=== PATIENT | male | born 1955 | race Caucasian/White ===

== ENCOUNTER 2018-11-12 17:57 | Observation (INO) | payer BC, OTHER ==
[~2018-11-12] VITALS: Ht 193 cm; Wt 106.3 kg
[~2018-11-12 17:57] MED LIST: CITALOPRAM HBR20 MG PO; FISH OIL PO; GLUCOSAMIN-CHO1 EACH PO; IMITREX100 MG PO; LOPRESSOR25 MG PO; MULTAQ400 MG PO; MULTIPLE VITAM1 EAC1 PO; PRADAXA150 MG PO
[2018-11-12] MEDS ORDERED: ASPIRIN 81 MG CHEW TAB PO ONE ×2 (18:30→21:45)
[2018-11-12 18:41] LABS: BASOPHILS # (AUTO) 0.1 (0.0-0.1); BASOPHILS % 0.7 % (0.0-1.0); EOSINOPHILS # (AUTO) 0.1 (0.0-0.4); EOSINOPHILS % 0.9 % (0.0-6.0); HEMATOCRIT 37.4 % (38.2-49.6); HEMOGLOBIN 13.4 g/dL (14.0-18.0); LYMPHOCYTES % 34.2 % (18.0-39.1); MEAN CORPUSCULAR HEMOGLOBIN 33.8 pg (28-32); MEAN CORPUSCULAR HGB CONC 35.8 g/dL (31-35); MEAN CORPUSCULAR VOLUME 94.2 fL (81-99); MONOCYTES # (AUTO) 1.4 (0.2-0.8); MONOCYTES % 12.2 % (4.4-11.3); NEUTROPHILS % 50.8 % (38.7-80.0); PLATELET COUNT 230 x10e3/uL (140-360); RED BLOOD COUNT 3.97 x10e6/uL (4.3-5.7); RED CELL DISTRIBUTION WIDTH 13.6 % (11.7-14.4)
[2018-11-12 18:45] LABS: INR 0.9
[2018-11-12 18:46] LABS: PARTIAL THROMBOPLASTIN TIME 25.3 seconds (23.8-35.5)
--- NOTE | 2018-11-12 18:50 | Diagnostic Imaging Report ---
EXAM: XR CHEST 1 VIEW DATE: 11/12/2018 6:30 PM INDICATION: Pain COMPARISON: None FINDINGS: Lines and Tubes: Left chest wall pacemaker. Heart and Mediastinum: No acute cardiomediastinal findings. Lungs and Pleura: No significant pleural effusion, pneumothorax, or focal consolidation. Bones and Soft Tissues: No acute findings. IMPRESSION: 1. No acute cardiopulmonary findings. Signed by: Dr. Juan Wray MD on 11/12/2018 6:46 PM
[2018-11-12 18:53] LABS: ALBUMIN 3.9 g/dL (3.5-5.0); ALBUMIN/GLOBULIN RATIO 1.7 (0.8-2.0); ANION GAP 17.2 mmol/L (8-16); CALCIUM 9.2 mg/dL (8.4-10.2); CREATININE, SERUM 1.66 mg/dL (0.72-1.25); POTASSIUM 3.2 mmol/L (3.5-5.1)
[2018-11-12 18:59] LABS: CREATINE KINASE MB 1.7 ng/mL (0-5.0)
--- NOTE | 2018-11-12 19:15 | NUR ---
REPORT AND PATIENT CARE ENDORSED TO SABA
[2018-11-12 19:40] LABS: CLARITY,URINE CLEAR (CLEAR); COLOR,URINE YELLOW (YELLOW); LEUKOCYTE ESTERASE ,URINE NEGATIVE (NEGATIVE); NITRITE,URINE NEGATIVE (NEGATIVE); PROTEIN,URINE DIPSTICK NEGATIVE (NEGATIVE)
[2018-11-12 19:41] LABS: BILIRUBIN,URINE NEGATIVE (NEGATIVE); KETONES,URINE 1+ (NEGATIVE); URINE UROBILINOGEN 0.2 mg/dL (0.2 - 1)
[2018-11-12 19:50] LABS: BACTERIA,URINE MANY /HPF; EPITHELIAL CELLS,URINE FEW /LPF; WBC,URINE (MAN) 0-5 /HPF (0-5)
[2018-11-12] MEDS ORDERED: AMLODIPINE BESYL5 MG PO (20:22)
[2018-11-12] MEDS ORDERED: CRESTOR10 MG PO (20:22)
[2018-11-12] MEDS ORDERED: SODIUM CHLORIDE 0.9% 1000ML 1,000 ML IV STA (21:31)
[2018-11-12] MEDS ORDERED: SODIUM CHLORIDE FLUSH 10 ML SYR INJ PRN (21:45)
[2018-11-12] MEDS ORDERED: NITROGLYCERIN 0.4 MG SUBL SL PRN (21:45)
[2018-11-12 23:30] VITALS: BP 114/67
--- NOTE | 2018-11-12 23:30 | NUR ---
patient is a new admit that arrived via wheelchair. patient is awake and talking. patient has been helped into the bed. bed is in lowest position and call light is within reach. will continue to monitor patient.
[2018-11-13] VITALS (8 sets, daily range): BP systolic 110–134; BP diastolic 55–72
[2018-11-13] MEDS ORDERED: METOPROLOL TART50 MG PO (00:42)
[2018-11-13] MEDS ORDERED: CITALOPRAM HBR20 MG PO (00:42)
[2018-11-13] MEDS ORDERED: MITIGARE PO (00:42)
--- NOTE | 2018-11-13 07:03 | NUR ---
report given to day nurse. patient is resting comfortably in bed. bed is in lowest position and call loja is within reach.
[2018-11-13] MEDS: ASPIRIN 81 MG ENTERIC COATED PO SCH (09:38)
[2018-11-13 10:44] LABS: CREATINE KINASE MB 0.8 ng/mL (0-5.0)
[2018-11-13] MEDS ORDERED: MORPHINE SULFATE 2 MG/ML SYR 1ML IV PRN (13:00)
[2018-11-13] MEDS ORDERED: HYDROCODONE/APAP 5MG-325MG TAB PO PRN (13:00)
--- NOTE | 2018-11-13 13:00 | NUR ---
call Dr. Wong's line to reach MD concerning potassium level of 3.2, was told by Junito Gutiérrez NP that the MD is rounding and will be able to take care of the potassium level at that time.
[2018-11-13] MEDS: HYDROCODONE/APAP 5MG-325MG TAB PO PRN (13:10)
[2018-11-13] MEDS: MORPHINE SULFATE INJ 4 MG/ML INJ 1ML IV PRN ×2 (15:30→20:28)
[2018-11-13] MEDS ORDERED: SODIUM CHLORIDE 0.9% 1000ML 1,000 ML IV SCH (17:00)
[2018-11-13] MEDS ORDERED: MITIGARE 0.6 MG PO SCH ×2 (17:00)
[2018-11-13] MEDS: METOPROLOL TARTRATE 50 MG TAB PO SCH (17:00)
[2018-11-13] MEDS ORDERED: POTASSIUM CHLORIDE 20 MEQ TAB CR PO SCH ×2 (17:00→17:30)
[2018-11-13] MEDS: FAMOTIDINE 20 MG TAB PO SCH (17:40)
[2018-11-13] MEDS: DABIGATRAN ETEXILATE 150 MG CAP PO SCH (17:40)
[2018-11-13] MEDS: DRONEDARONE 400 MG TAB PO SCH (17:40)
--- NOTE | 2018-11-13 19:05 | NUR ---
rounded with evening or night nurse supervisor nurse, patient aware of change. Patient in no distress, call loja within reach and bed in lowest position.
[2018-11-13] MEDS ORDERED: ACETAMINOPHEN 325 MG TAB PO PRN (20:15)
[2018-11-13] MEDS ORDERED: CITALOPRAM HYDROBROMIDE 20 MG TAB PO SCH (21:00)
[2018-11-13] MEDS ORDERED: SIMVASTATIN 20 MG TAB PO SCH (21:00)
--- NOTE | 2018-11-13 21:10 | History and Physical ---
PRIMARY CARE PROVIDER: Dr. Craig Taylor, not on staff here. CHIEF COMPLAINT: Chest discomfort. HISTORY OF PRESENT ILLNESS: Mr. Brown is a 63-year-old gentleman with a history of chronic AFib, previous atrial ablation, pacemaker, and hypertension, who presents with chest discomfort and palpitations. He says that he has had kind of a vague heaviness in his chest and fatigue for about the past 2 weeks, and he checked his pulse yesterday and noticed that he was having frequent pauses and was concerned and came to the ER. His EKG was found to have numerous PVCs, trigeminy at times, and was admitted to rule out acute coronary syndrome. REVIEW OF SYSTEMS: He denies fever, chills, or weight loss. He denies sinus congestion or sore throat. He has chest discomfort and palpitations as noted and he denies diaphoresis. He denies shortness of breath, wheezing, or cough. He denies abdominal pain, nausea, vomiting, or melena. He denies dysuria or flank pain. He denies rash or pruritus. He denies joint pain or swelling. He denies headache, vertigo, or loss of consciousness. He denies depression, agitation, homicidal or suicidal ideation. PAST MEDICAL HISTORY: Significant for hypertension, gout, chronic AFib, and arthritis. He also has a history of atrial ablation, pacemaker placement. He has had back surgery twice and he has had meniscal repair on both knees. CURRENT MEDICATIONS: Include Celexa 20 mg at bedtime, metoprolol 50 mg twice daily, Multaq 400 mg twice daily, Pradaxa 150 mg twice daily, amlodipine 5 mg daily, Crestor 10 mg daily, Uloric 60 mg daily, Plaquenil 200 mg daily, and Mitigare or colchicine 0.6 mg twice daily which gives the patient diarrhea. ALLERGIES: HE HAS NO KNOWN DRUG ALLERGIES. FAMILY HISTORY: Significant for hypertension. SOCIAL HISTORY: The patient is , here with his . He quit smoking 8 years ago. He drinks daily beer or two. He does not use illegal drugs, and he is generally independently functioning. PHYSICAL EXAMINATION: PSYCHIATRIC: He is alert and oriented x3 with normal mood and affect. CONSTITUTIONAL: He has a normal body habitus, is in no acute distress. VITAL SIGNS: As follows: Blood pressure 134/72, pulse 90 and irregular at times, respiratory rate 16, O2 sat 96% on room air, temperature 98.2. HEENT: His head is atraumatic. His eyes are anicteric with clear conjunctivae. Ears and nares are without erythema or discharge. Oropharynx is clear. NECK: Supple with no mass or thyromegaly. LYMPHATIC SYSTEM: He has no palpable cervical, axillary, or inguinal adenopathy. CARDIOVASCULAR SYSTEM: His heart has a regular rate and rhythm with occasional pauses. There is some occasional irregularity. There is no murmur. There is no carotid bruit. There is no peripheral edema. Palpable dorsal pedal pulses. RESPIRATORY: Lungs are clear to auscultation and percussion with normal respiratory effort. GASTROINTESTINAL: His abdomen is soft without organomegaly, masses, or tenderness with normal bowel sounds present. CUTANEOUS: His skin is warm and dry to touch with no rash or skin breakdown. MUSCULOSKELETAL: His joints are in normal alignment without erythema or swelling. He has no calf tenderness. NEUROLOGIC: Nonfocal with intact cranial nerves and no motor or sensory deficits. DIAGNOSTIC STUDIES: Chest x-ray shows no acute disease. His EKG shows frequent PVCs, trigeminy at times, but otherwise normal. His UA shows many bacteria. His flu screen is negative. BNP is 67.1. Troponin 0.006, 0.004, and 0.001. Hemoglobin A1c 5.5. His chemistry shows a potassium of 3.2. The rest of his electrolytes are normal. CO2 23. Creatinine 1.66, BUN 26 for a GFR of 42. Calcium 9.2. His transaminases, alk phos, and bilirubin are normal. His CBC shows a white count of 11.7 with a normal differential, hemoglobin 13.4, hematocrit 37.4, and platelet count 230,000. IMPRESSIONS AND PLAN: 1. Chest pain, rule out acute coronary syndrome. The patient's cardiac enzymes are negative x3. Will consult cardiology for stress test. 2. Palpitations. Frequent premature ventricular contractions on the monitor. Patient has a pacemaker. Will consult cardiology for further evaluation. 3. Hypokalemia which might be causing the premature ventricular contractions. Will replete with 40 mEq of potassium p.o., check a magnesium level in the morning. 4. Gout. Will check his uric acid level. Uloric formulary here and he had a rash with allopurinol, so will hold his gout medicine for now. 5. Hypertension. Will continue metoprolol and Norvasc. 6. Chronic atrial fibrillation and sick sinus syndrome with pacemaker placement. Will continue Pradaxa and Multaq as well as metoprolol. 7. Acute kidney injury versus chronic kidney disease 3. In our system, his last renal function was in 2012, which was normal. He has a glomerular filtration rate of 42, and the patient has been hydrated. Will recheck in the morning. 8. For prophylaxis, the patient will be on Pepcid for gastrointestinal prophylaxis, and is already on Pradaxa for deep venous thrombosis and stroke prophylaxis. Job#: [id number]
[2018-11-14] VITALS: BP 120/63
[2018-11-14 04:00] VITALS: BP 122/71
[2018-11-14 04:09] LABS: ANION GAP 10.4 mmol/L (8-16); BLOOD UREA NITROGEN 14 mg/dL (7-26); BUN/CREATININE RATIO 16 (6-25); CARBON DIOXIDE 24 mmol/L (22-29); CHLORIDE 109 mmol/L (98-107); CHOLESTEROL 130 MD/DL (0-199); CREATININE, SERUM 0.89 mg/dL (0.72-1.25); EST GLOMERULAR FILTRATION RATE > 60 ML/MIN (60-); GLUCOSE 95 mg/dL (74-118); HDL CHOLESTEROL 43 MG/DL (40-60); LDL CHOLESTEROL 53 MG/DL (60-130); POTASSIUM 3.4 mmol/L (3.5-5.1); SODIUM 140 mmol/L (136-145); TRIGLYCERIDES 172 MG/DL (0-149)
[2018-11-14 04:10] LABS: CALCIUM 7.8 mg/dL (8.4-10.2)
[2018-11-14 04:20] LABS: HEMATOCRIT 32.7 % (38.2-49.6); MEAN CORPUSCULAR HEMOGLOBIN 32.9 pg (28-32); MEAN CORPUSCULAR HGB CONC 33.6 g/dL (31-35); MEAN CORPUSCULAR VOLUME 97.9 fL (81-99); RED BLOOD COUNT 3.34 x10e6/uL (4.3-5.7)
[2018-11-14 04:21] LABS: BASOPHILS % 0.7 % (0.0-1.0); EOSINOPHILS # (AUTO) 0.1 (0.0-0.4); EOSINOPHILS % 1.6 % (0.0-6.0); LYMPHOCYTES # (AUTO) 2.3 (1.0-3.2); LYMPHOCYTES % 39.8 % (18.0-39.1); MONOCYTES # (AUTO) 0.7 (0.2-0.8); MONOCYTES % 11.4 % (4.4-11.3); NEUTROPHILS # (AUTO) 2.6 (2.1-6.9); NEUTROPHILS % 45.6 % (38.7-80.0); PLATELET COUNT 161 x10e3/uL (140-360); RED CELL DISTRIBUTION WIDTH 13.4 % (11.7-14.4)
--- NOTE | 2018-11-14 06:40 | NUR ---
rounded with car shifter nurse, patient aware of change. Patient in no distress and call loja within reach
[2018-11-14 07:10] VITALS: BP 147/81
[2018-11-14 08:30] VITALS: BP 147/81
[2018-11-14] MEDS ORDERED: REGADENOSON 0.4 MG/5 ML SYR IV ONE (08:36)
[2018-11-14] MEDS: DRONEDARONE 400 MG TAB PO SCH ×2 (08:45→17:25)
[2018-11-14] MEDS: DABIGATRAN ETEXILATE 150 MG CAP PO SCH ×2 (08:45→17:25)
[2018-11-14] MEDS: METOPROLOL TARTRATE 50 MG TAB PO SCH ×2 (08:45→16:02)
[2018-11-14] MEDS: HYDROCODONE/APAP 5MG-325MG TAB PO PRN ×2 (08:45→14:47)
[2018-11-14] MEDS: FAMOTIDINE 20 MG TAB PO SCH ×2 (08:45→17:25)
[2018-11-14] MEDS: ASPIRIN 81 MG ENTERIC COATED PO SCH (08:45)
--- NOTE | 2018-11-14 08:55 | NUR ---
Patient in stable condition, alert and oriented. Patient wheeled from floor in wheelchair to stress test at this time
[2018-11-14] MEDS ORDERED: SIMVASTATIN 40 MG TAB PO SCH (09:00)
[2018-11-14] MEDS ORDERED: AMLODIPINE BESYLATE 5 MG TAB PO SCH (09:00)
--- NOTE | 2018-11-14 09:22 | Consultation ---
DATE OF CONSULTATION: November 13, 2018 CARDIOLOGY CONSULTATION REASON FOR CONSULTATION: Chest pain and stress test. HPI: This is a pleasant 63-year-old male that presented with chest pain. According to him, he started having chest pain at the center of the chest that felt like pressure that was going on for 2 weeks accompanied with palpitations. He has a history of CAD, permanent pacemaker and has not followed up with a brim flexer recently. He only sees the EP to interrogate his pacemaker, which was done May last year. He stated that the chest pain felt like heavy pressure. He checked his pulse and felt like he was skipping some beats that he decided to come into the emergency room for evaluation. He also has a history of chronic AFib, ablation times 2 and he was anticoagulated with Pradaxa. He also stated he drinks 4 cans of beer daily, which is 28 cans of beer weekly. He denied any headache, any nausea or vomiting, any dizziness, or diaphoresis. Troponin times 3 was negative. EKG showed normal sinus rhythm with frequent PVCs. PAST MEDICAL HISTORY: AFib, A-flutter, gout, hypertension, depression, sick sinus syndrome, alcohol abuse, and anemia. PAST SURGICAL HISTORY: Hernia repair, back surgery times 2, cataract surgery on both eyes, bilateral knee surgery, cardiac ablation times 2 for AFib and pacemaker placement in 2012. FAMILY HISTORY: Positive for hypertension. SOCIAL HISTORY: He lives at home with the . He drinks 4 cans of beer daily. MEDICATIONS: He is on Pradaxa, metoprolol, Multaq, Crestor, and Norvasc. ALLERGIES: HE IS NOT ALLERGIC TO ANY MEDICATION. REVIEW OF SYSTEMS: Negative except those mentioned above. Positive for chest pain and palpitations. PHYSICAL EXAMINATION VITAL SIGNS: Temperature 98.5, heart rate 73, blood pressure 122/71, respirations 16, oxygen saturation 98% on 2 L nasal cannula. GENERAL: He is awake, alert and oriented times 3. HEENT: Mucous membrane moist. NECK: Supple. LUNGS: Bilateral clear to auscultation. CARDIOVASCULAR: S1 and S2 present. No murmur. ABDOMEN: Soft. NEUROLOGICAL: Intact. EXTREMITIES: With no edema. LABS: Sodium 140, potassium 3.4, chloride 109, CO2 24, BUN 14, creatinine 0.89, glucose 95. BNP 67.1. White blood cells 5.78, hemoglobin 11, hematocrit 32.7, and platelets 161,000. IMPRESSION 1. Chest pain. 2. Palpitations. 3. Hypokalemia. 4. Coronary artery disease with permanent pacemaker. 5. History of chronic atrial fibrillation. 6. Hypertension. 7. Alcohol abuse. 8. History of gout. 9. Chronic pain. 10. Depression. ASSESSMENT AND PLAN 1. Will go ahead and get an echocardiogram to assess the LV and the valve function. 2. Troponin times 3 was negative. 3. His heart rate is controlled and he is anticoagulated with Pradaxa. 4. Due to the symptoms of the chest pain and history of CAD, will go ahead and set him for Lexiscan Myoview to rule out any occlusion. 5. Permanent pacemaker was recently interrogated with good function. 6. Continue his home medications. 7. He has been counseled on alcohol cessation. 8. Will keep him n.p.o. and get consent for stress test. Risks and benefits explained to him and he agreed. Further cardiac workup pending clinical course. Thank you for this consultation. DICTATED BY YAZAN PAULINO NP Job#: [id number]
--- NOTE | 2018-11-14 10:25 | NUR ---
patient arrived back on floor via wheelchair, alert and oriented and in stable condition.
[2018-11-14] MEDS: MORPHINE SULFATE INJ 4 MG/ML INJ 1ML IV PRN ×2 (10:40→17:35)
[2018-11-14 12:00] VITALS: BP 122/78
--- NOTE | 2018-11-14 12:36 | NUR ---
patient leaving floor via wheelchair for second half of stress test. Patient alert and oriented and in stable condition
--- NOTE | 2018-11-14 12:37 | NUR ---
STILE RIPSAW OPERATOR INITIAL ASSESSMENT Paramedic Rn to bedside to discuss plan of care with patient/family. CM/SW role and care transitions discussed. Anticipated discharge plan discussed along with duration of care. CM/SW discussed patients right to make decisions in care. CM/SW work hours given. Patient lives: in house in [place] with his Admit/Transfer: came from ED POA/Emergency contact: : Niyah Brown [phone] Current/Previous Home Health: none PCP/Follow-up Care: Dr. Craig Taylor Current/Previous DME: RW, Cane, Wheelchair Other Services: none Employment Status: works at [employer] in [place] Areas of Concerns: none Referral Needs: none Education Needs: none IMM/MATHUR given and signed (if applicable): n/a Goal for discharge: to return home to , and return to work CM/SW left business card at the bedside with contact information. Name and number was also written on the patients whiteboard. Patient verbalized understanding of discussion. CM will follow-up with ongoing discharge and transition of care needs.
--- NOTE | 2018-11-14 13:05 | NUR ---
patient returned to floor via wheelchair, alert and oriented and in stable condition
[2018-11-14 16:07] VITALS: BP 102/58
--- NOTE | 2018-11-14 19:11 | NUR ---
discharge instructions given to patient and at this time, both verbalized understanding. IV discontinued at this time, catheter in tact and small dressing applied. Patient in stable condition and is escorted from the floor at this time via wheelchair to patient's auto for to drive home.
--- NOTE | 2018-11-15 00:14 | Discharge Summary ---
ADMITTING DIAGNOSES 1. Chest pain rule out acute coronary syndrome. 2. Palpitations and frequent premature ventricular contractions. 3. Hypokalemia. 4. Gout. 5. Hypertension. 6. Chronic atrial fibrillation and sick sinus syndrome, status post pacemaker placement. 7. Acute kidney injury. DISCHARGE DIAGNOSES 1. Chest pain rule out acute coronary syndrome. 2. Palpitations and frequent premature ventricular contractions. 3. Hypokalemia. 4. Gout. 5. Hypertension. 6. Chronic atrial fibrillation and sick sinus syndrome, status post pacemaker placement. 7. Acute kidney injury. BRIEF HISTORY: Mr. Brown is a 63-year-old gentleman presenting with chest discomfort and palpitations that had been going on for at least a week. He felt his pulse and had occasional pauses, was found to be in trigeminy at times with frequent PVCs with compensatory pauses. The patient was admitted to rule out acute coronary syndrome. HOSPITAL COURSE: The patient was admitted to floor overnight. Serial cardiac enzymes were negative for myocardial injury. His palpitations improved with repletion of his hypokalemia. He was seen by cardiology. Echocardiogram was ordered which showed ejection fraction 50% to 55% without any wall motion abnormalities, calcified mitral valve. The tower truck driver then performed a stress test that was negative for reversible myocardial ischemia. The patient was then discharged home to resume all his home meds, a cardiac diet, activity as tolerated. He was instructed to follow up with his PCP within 2 weeks and to follow up with the tower truck driver in 2 weeks as well. GORDON WERNER MD Job#: [id number] CF
== END 2018-11-14 19:11 | disposition home or self-care (01) ==
LOC: ER 17:57 → ERHOLD 21:44 → IMCU 23:44
PROVIDERS: ADMIT Internal Medicine; ATTEND Internal Medicine
DX: R07.9 Chest pain, unspecified (principal); I49.3 Ventricular premature depolarization; E87.6 Hypokalemia; M10.9 Gout, unspecified; I48.2 Chronic atrial fibrillation; Z79.01 Long term (current) use of anticoagulants; N17.9 Acute kidney failure, unspecified; Z95.0 Presence of cardiac pacemaker; F10.10 Alcohol abuse, uncomplicated; G89.29 Other chronic pain; F32.9 Major depressive disorder, single episode, unspecified
CPT/HCPCS: 36415 ×2; 71045; 78452; 80048; 80053; 80061; 81001; 82550 ×2; 82553 ×2; 83036; 83735; 83880; 84484 ×2; 84550; 85025 ×2; 85610; 85730; 87400; 93005; 93017; 93306; 99284; A9502; G0378 ×3; J2270 ×2; J2785; J7030 ×2

== ENCOUNTER → 2020-01-24 | Day surgery (SDC) | payer OTHER ==
[2020-01-21 10:46] LABS: BASOPHILS # (AUTO) 0.1 (0.0-0.1); BASOPHILS % 0.8 % (0.0-1.0); EOSINOPHILS # (AUTO) 0.3 (0.0-0.4); EOSINOPHILS % 3.1 % (0.0-6.0); HEMATOCRIT 46.4 % (38.2-49.6); HEMOGLOBIN 15.5 g/dL (14.0-18.0); LYMPHOCYTES # (AUTO) 2.2 (1.0-3.2); LYMPHOCYTES % 21.7 % (18.0-39.1); MEAN CORPUSCULAR HEMOGLOBIN 32.4 pg (28-32); MEAN CORPUSCULAR HGB CONC 33.4 g/dL (31-35); MEAN CORPUSCULAR VOLUME 97.1 fL (81-99); MONOCYTES # (AUTO) 1.1 (0.2-0.8); MONOCYTES % 10.9 % (4.4-11.3); NEUTROPHILS # (AUTO) 6.5 (2.1-6.9); PLATELET COUNT 214 x10e3/uL (140-360); RED BLOOD COUNT 4.78 x10e6/uL (4.3-5.7)
--- NOTE | 2020-01-21 10:48 | Diagnostic Imaging Report ---
EXAMINATION: CHEST 2 VIEWS INDICATION: Pre-operative COMPARISON: Chest radiograph 11/12/2018 FINDINGS: LINES/TUBES:Left chest pacer LUNGS:The lungs are mildly hyperinflated. Mild right apical pleural parenchymal thickening/scarring. No focal consolidation or pulmonary edema. PLEURA:No pleural effusion or pneumothorax. MEDIASTINUM:The cardiomediastinal silhouette appears normal in size and shape. BONES/SOFT TISSUES:No acute osseous injury. ABDOMEN:No free air under the diaphragm. IMPRESSION: Mildly hyperinflated lungs. No focal pneumonia or pulmonary edema. Signed by: Jian Muñiz MD on 01/21/2020 10:44 AM
[2020-01-21 11:06] LABS: ALBUMIN 4.2 g/dL (3.5-5.0); ALBUMIN/GLOBULIN RATIO 1.7 (0.8-2.0); ANION GAP 13.6 mmol/L (8-16); CREATININE, SERUM 1.37 mg/dL (0.72-1.25); POTASSIUM 3.6 mmol/L (3.5-5.1)
[~2020-01-24] MED LIST changes: +AMLODIPINE BESYL5 MG PO; +APPLE CIDER VI1 EAC1 PO; +ARIMIDEX1 MG PO; +B&O 60MG R/S 60 MG SUPP PR ONE; +CEFAZOLIN SOD 1 GM/NS 50ML 100 ML IV ONE; +CENTRUM PO; +CRESTOR10 MG PO; +EPHEDRINE SULFATE INJ 50 MG/ML VIAL ONE; +FENTANYL CITRATE/PF 100MCG/2 ML INJ ONE; +FLAXSEED OIL1000 MG PO; +FOSAMAX70 MG PO; +IOPAMIDOL 300MG/ML 50ML INFUS..BTL IV ONE; +LIDOCAINE HCL 2% LOCAL INJ 5 ML SDV VIAL INJ ONE; +MELATONIN3 MG PO; +METOPROLOL TART50 MG PO; +MIDAZOLAM HCL 2 MG/2 ML VIAL ONE; +MITIGARE PO; +OLMESARTAN-HCT1 EAC1 PO; +ONDANSETRON HCL INJ 2MG/ML 2ML 2 MG/ML VIAL ONE; +PLAQUENIL200 MG PO; +PREDNISONE5 MG PO; +PROPOFOL IV EMULSION 10 MG/ML 20 ML VIAL ONE; +SEVOFLURANE INHAL SOLN 250 ML PEN BTL ONE; +TESTOSTERO100 MG/1 M INJ; +ULORIC80 MG PO
--- OUTSIDE RECORDS SUMMARY | 2020-01-24 05:40 | XMS REPORT ---
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 Medications Ordered Medication Name Filled Medication Name Start Date Stop Date Current Medication? Ordering Clinician Indication Dosage Frequency Signature (SIG) Comments Components Amlodipine Besylate 5 Mg Tablet Amlodipine Besylate 5 Mg Tablet Yes 5 Daily Citalopram Hydrobromide (Citalopram Hbr) 20 Mg Tablet Citalopram Hydrobromide (Citalopram Hbr) 20 Mg Tablet Yes 20 Bedtime Citalopram Hydrobromide (Citalopram Hbr) 20 Mg Tablet Citalopram Hydrobromide (Citalopram Hbr) 20 Mg Tablet Yes 20 Daily Dabigatran Etexilate Mesylate (Pradaxa) 150 Mg Capsule Dabigatran Etexilate Mesylate (Pradaxa) 150 Mg Capsule Yes 150 Twice A Day Dronedarone Hydrochloride (Multaq) 400 Mg Tablet Dronedarone Hydrochloride (Multaq) 400 Mg Tablet Yes 400 Twice A Day Metoprolol Tartrate 50 Mg Tablet Metoprolol Tartrate 50 Mg Tablet Yes 50 Twice A Day Rosuvastatin Calcium (Crestor) 10 Mg Tab Rosuvastatin Calcium (Crestor) 10 Mg Tab Yes 10 Daily Metoprolol Tartrate (Lopressor) 25 Mg Tab, 25 Mg Oral Metoprolol Tartrate (Lopressor) 25 Mg Tab, 25 Mg Oral 2018-11-14 00:00:00 No 25 Twice A Day Mitigare , 0.6 Mg Oral Mitigare , 0.6 Mg Oral 2018-11-14 00:00:00 No .6 Twice A Day Fish Oil , 1 Tab Oral Fish Oil , 1 Tab Oral 2013-07-14 00:00:00 No 1 Twice A Day Gluc/Sergey-Msm#2/C/D3/Mohit/Born (Xvstdltapd-Mrpagepphnh-Xvc Tab) 1 Each Tablet, Oral Gluc/Sergey-Msm#2/C/D3/Mohit/Born (Czvaooslcj-Ndqlugrmgcl-Mwj Tab) 1 Each Tablet, Oral 2013-07-14 00:00:00 No Twice A Day Multivitamin With Minerals (Multiple Vitamin) 1 Each Tablet, 1 Tab Oral Multivitamin With Minerals (Multiple Vitamin) 1 Each Tablet, 1 Tab Oral 2013-07-14 00:00:00 No 1 Bedtime Sumatriptan Succinate (Imitrex) 100 Mg Tablet, 100 Mg Oral Sumatriptan Succinate (Imitrex) 100 Mg Tablet, 100 Mg Oral 2013-07-14 00:00:00 No 100 As Needed Encounters Start Date/Time End Date/Time Encounter Type Admission Type Attending Clinicians Care Facility Care Department Encounter ID 2018-11-12 21:44:00 2018-11-14 19:11:00 Discharged Inpatient (obs) 1 GORDON WERNER [facility] [id number] Results Test Description Test Time Test Comments Text Results Atomic Results Result Comments CHEST 2 VIEWS 2020-01-21 10:44:00 [facility] [address] [place], [place] [address] Patient Name: NEYDA FERGUSON MR #: [id number] : 1955 Age/Sex: 64/M Req #: [id number] Adm Physician: Ordered by: SWETHA DUKE MD Report #: [id number] Location: OR Room/Bed: Procedure: [id number] DX/CHEST 2 VIEWS Exam Date: 01/21/20 Exam Time: 1000 REPORT STATUS: Signed EXAMINATION: CHEST 2 VIEWS INDICATION: Pre-operative COMPARISON: Chest radiograph 11/12/2018 FINDINGS: LINES/TUBES:Left chest pacer LUNGS:The lungs are mildly hyperinflated. Mild right apical pleural parenchymal thickening/scarring. No focal consolidation or pulmonary edema. PLEURA:No pleural effusion or pneumothorax. MEDIASTINUM:The cardiomediastinal silhouette appears normal in size and shape. BONES/SOFT TISSUES:No acute osseous injury. ABDOMEN:No free air under the diaphragm. IMPRESSION: Mildly hyperinflated lungs. No focal pneumonia or pulmonary edema. Signed by: Maegan Hill MD on 01/21/2020 10:44 AM Dictated By: MAEGAN HILL MD 1044 Transcribed By: REBA on 01/21/20 1044 COPY TO: SWETHA DUKE MD Stress Test - Treadmill ONLY 2018-11-24 13:08:[address] [address] Patient Name : NEYDA FERGUSON MR #: [id number] : 1955 Age/Sex: 63/M Adm Physician : GORDON WERNER MD Admit Date : 11/12/18 Location : [facility] Room/Bed : [facility] 176-1 _ REPORT: Cardiology Report DATE OF STUDY: November 14, 2018 LEXISCAN STRESS TEST INDICATIONS: Chest pain. DESCRIPTION OF PROCEDURE: After informed consent, the patient was brought to the stress lab. He was given 10 mCi of technetium 99 Myoview, and myocardial perfusion SPECT images were obtained in the horizontal long and short axis and vertical long axis views. Subsequently, the patient was given 0.4 mg Lexiscan over 10 seconds. Patient was given 32 mCi of technetium 99 Myoview, and myocardial perfusion SPECT images were obtained in the horizontal long and short axis and vertical long axis. Gated images were also obtained. Patient tolerated the procedure without any complication. REPORT: Baseline EKG shows sinus rhythm at 70 beats per minute, normal axis, normal intervals, no acute ST-T changes. PARAMETERS 1. Resting heart rate is 66 beats per minute. 2. Maximum heart rate 78 beats per minute. 3. Resting blood pressure 134/78 mmHg. 4. Maximum blood pressure is 149/76 mmHg. REASON FOR TERMINATION: End point attained. INTERPRETATION 1. Negative for chest pain. 2. Negative for arrhythmias. 3. Blood response consistent with Lexiscan. 4. No significant ST-T changes seen during Lexiscan infusion compared to baseline. 5. Analysis of SPECT images reveals uniform radioisotope uptake in all segments of the myocardium without any significant perfusion defects. CONCLUSIONS 1. No evidence of significant ischemia or infarction on this study. 2. No gated images were obtained. Job#: [id number] Signature Date Dictated By: MERLE LEONE MD Transcribed By: ARTI on 11/24/18 <Electronically signed by MERLE LEONE MD><<Signature on File>>11/28/18 5619 COPY TO: Uric Acid 2018-11-14 04:41:00 Uric Acid (test pkoc=8664-4) 7.4 4.8-8.0 Magnesium Ejdel4184-05-59 04:41:00* Test Item Value Reference Range Comments Magnesium Level (test tcyi=39636-3) 2.0 1.3-2.1 White Blood Cpxiz7473-86-91 04:21:00* Test Item Value Reference Range Comments White Blood Count (test pudh=0807-8) 5.78 4.8-10.8 Red Blood Zqvgk3629-15-38 04:21:00* Test Item Value Reference Range Comments Red Blood Count (test osgt=405-5) 3.34 4.3-5.7 Ggacetwbzu4370-33-19 04:21:00* Test Item Value Reference Range Comments Hemoglobin (test xmnw=64822-2) 11.0 14.0-18.0 Xsfefakefh8213-65-31 04:21:00* Test Item Value Reference Range Comments Hematocrit (test shiy=1106-5) 32.7 38.2-49.6 Mean Corpuscular Vucyhu5202-64-55 04:21:00* Test Item Value Reference Range Comments Mean Corpuscular Volume (test ahth=295-5) 97.9 81-99 Mean Corpuscular Ggsnmeoedk3067-75-33 04:21:00* Test Item Value Reference Range Comments Mean Corpuscular Hemoglobin (test otja=003-3) 32.9 28-32 Mean Corpuscular Hemoglobin Adnaktj6126-79-49 04:21:00* Test Item Value Reference Range Comments Mean Corpuscular Hemoglobin Concent (test oxlp=222-7) 33.6 31-35 Red Cell Distribution Jwscd4348-29-40 04:21:00* Test Item Value Reference Range Comments Red Cell Distribution Width (test phbs=98906-0) 13.4 11.7-14.4 Platelet Mrtik3250-51-73 04:21:00* Test Item Value Reference Range Comments Platelet Count (test mooj=300-6) 161 140-360 Neutrophils (%) (Auto)2018-11-14 04:21:00* Test Item Value Reference Range Comments Neutrophils (%) (Auto) (test nyat=04959-2) 45.6 38.7-80.0 Lymphocytes (%) (Auto)2018-11-14 04:21:00* Test Item Value Reference Range Comments Lymphocytes (%) (Auto) (test udxs=772-1) 39.8 18.0-39.1 Monocytes (%) (Auto)2018-11-14 04:21:00* Test Item Value Reference Range Comments Monocytes (%) (Auto) (test qzgd=2212-9) 11.4 4.4-11.3 Eosinophils (%) (Auto)2018-11-14 04:21:00* Test Item Value Reference Range Comments Eosinophils (%) (Auto) (test eplb=119-5) 1.6 0.0-6.0 Basophils (%) (Auto)2018-11-14 04:21:00* Test Item Value Reference Range Comments Basophils (%) (Auto) (test qnso=864-5) 0.7 0.0-1.0 IM GRANULOCYTES %2018-11-14 04:21:00* Test Item Value Reference Range Comments IM GRANULOCYTES % (test code=IM GRANULOCYTES %) 0.9 0.0-1.0 Neutrophils # (Auto)2018-11-14 04:21:00* Test Item Value Reference Range Comments Neutrophils # (Auto) (test cxqn=081-6) 2.6 2.1-6.9 Lymphocytes # (Auto)2018-11-14 04:21:00* Test Item Value Reference Range Comments Lymphocytes # (Auto) (test jofb=12873-7) 2.3 1.0-3.2 Monocytes # (Auto)2018-11-14 04:21:00* Test Item Value Reference Range Comments Monocytes # (Auto) (test wbck=420-3) 0.7 0.2-0.8 Eosinophils # (Auto)2018-11-14 04:21:00* Test Item Value Reference Range Comments Eosinophils # (Auto) (test cpwb=368-0) 0.1 0.0-0.4 Basophils # (Auto)2018-11-14 04:21:00* Test Item Value Reference Range Comments Basophils # (Auto) (test dejq=643-1) 0.0 0.0-0.1 Absolute Immature Granulocyte (zfqd7593-93-83 04:21:00* Test Item Value Reference Range Comments Absolute Immature Granulocyte (auto (test code=Absolute Immature Granulocyte (auto) 0.05 0-0.1 Sodium Oyikz1678-13-23 04:10:00* Test Item Value Reference Range Comments Sodium Level (test gcvd=0277-4) 140 136-145 Potassium Prejo2852-14-50 04:10:00* Test Item Value Reference Range Comments Potassium Level (test hzbg=8867-9) 3.4 3.5-5.1 Chloride Yrgit6692-31-50 04:10:00* Test Item Value Reference Range Comments Chloride Level (test lkte=6449-3) 109 98-107 Carbon Dioxide Mgiil9407-53-99 04:10:00* Test Item Value Reference Range Comments Carbon Dioxide Level (test eyfg=7965-9) 24 22-29 Anion Zxf5075-78-48 04:10:00* Test Item Value Reference Range Comments Anion Gap (test nqfy=31612-2) 10.4 8-16 Blood Urea Esntdexm0920-39-76 04:10:00* Test Item Value Reference Range Comments Blood Urea Nitrogen (test antx=3423-6) 14 7-26 Hkdhjcsjez3694-85-91 04:10:00* Test Item Value Reference Range Comments Creatinine (test ktgj=1696-7) 0.89 0.72-1.25 BUN/Creatinine Begpz6285-86-28 04:10:00* Test Item Value Reference Range Comments BUN/Creatinine Ratio (test aplt=2825-7) 16 6-25 Estimat Glomerular Filtration Crgo2621-93-10 04:10:00* Test Item Value Reference Range Comments Estimat Glomerular Filtration Rate (test yuyd=033652000) > 60 >60 Ranges were taken from the National Kidney Disease Education Program and the [facility] Kidney Foundation literature.Reference ranges:60 or greater: Nhppws15-42 ( for 3 consecutive months): Chronic kidney disease 15 or less: Kidney failure Glucose Fymsb8298-11-87 04:10:00* Test Item Value Reference Range Comments Glucose Level (test nwyq=XEU9804) 95 74-118 Calcium Bbkwt2520-45-51 04:10:00* Test Item Value Reference Range Comments Calcium Level (test gaam=02263-5) 7.8 8.4-10.2 VERIFIED PREVIOUS RESULTSTriglycerides Bewre0887-81-56 04:10:00* Test Item Value Reference Range Comments Triglycerides Level (test scei=0305-5) 172 0-149 Cholesterol Ztrnp9082-88-74 04:10:00* Test Item Value Reference Range Comments Cholesterol Level (test oqog=0953-4) 130 0-199 Less than 200 mg/dL Low Tqbx264 - 239 mg/dL Borderline Snot569 m g/dl and greater High Risk LDL Kblvjchgdwy9217-23-80 04:10:00* Test Item Value Reference Range Comments LDL Cholesterol (test cjfb=3150-4) 53 60-130 HDL Zvzducqvffe9556-44-34 04:10:00* Test Item Value Reference Range Comments HDL Cholesterol (test actk=0203-1) 43 40-60 Cholesterol/HDL Oaqoj3058-92-19 04:10:00* Test Item Value Reference Range Comments Cholesterol/HDL Ratio (test octi=8504-7) 3.0 3.9-4.7 Creatine Kinase OX2558-18-68 10:45:00* Test Item Value Reference Range Comments Creatine Kinase MB (test xtdn=15976-0) 0.80 0-5.0 Troponin Z5051-96-46 10:45:00* Test Item Value Reference Range Comments Troponin I (test moqm=NEN0700) 0.001 0-0.300 Creatine Lezqtr0837-27-97 10:41:00* Test Item Value Reference Range Comments Creatine Kinase (test vfbs=4543-9) 55 30-200 Hemoglobin A1c Yirguru6061-67-83 22:14:00* Test Item Value Reference Range Comments Hemoglobin A1c Percent (test code=Hemoglobin A1c Percent) 5.5 4.0-7.0 Influenza Virus Types A,B Helyryw5024-39-23 20:38:00* Test Item Value Reference Range Comments Influenza Virus Types A,B Antigen (test munh=01145-2) NEGATIVE NEGATIVE Urine OOH4458-30-44 19:50:00* Test Item Value Reference Range Comments Urine WBC (test syuy=7563-8) 0-5 0-5 Urine YOI6678-84-41 19:50:00* Test Item Value Reference Range Comments Urine RBC (test fbuc=74567-6) NONE 0-5 Urine Utdlupvs8372-85-09 19:50:00* Test Item Value Reference Range Comments Urine Bacteria (test wjxp=84681-3) MANY NONE Urine Epithelial Gmpoq3864-92-03 19:50:00* Test Item Value Reference Range Comments Urine Epithelial Cells (test ltmf=56169-4) FEW NONE Urine Krgln3015-07-83 19:41:00* Test Item Value Reference Range Comments Urine Color (test lxmx=5399-1) YELLOW YELLOW Urine Ryhnibq6691-59-01 19:41:00* Test Item Value Reference Range Comments Urine Clarity (test pask=44484-5) CLEAR CLEAR Urine Specific Teinlef2460-38-06 19:41:00* Test Item Value Reference Range Comments Urine Specific Bradford (test tpgd=7680-8) 1.010 1.010-1.025 Urine yR4695-05-71 19:41:00* Test Item Value Reference Range Comments Urine pH (test gzau=61045-1) 6 5-7 Urine Leukocyte Cobtbjxc2644-35-21 19:41:00* Test Item Value Reference Range Comments Urine Leukocyte Esterase (test mtxz=7154-1) NEGATIVE NEGATIVE Urine Yvgwyyt9396-83-00 19:41:00* Test Item Value Reference Range Comments Urine Nitrite (test hdvn=03423-7) NEGATIVE NEGATIVE Urine Onrcaix3118-16-98 19:41:00* Test Item Value Reference Range Comments Urine Protein (test uqyw=4733-0) NEGATIVE NEGATIVE Urine Glucose (UA)2018-11-12 19:41:00* Test Item Value Reference Range Comments Urine Glucose (UA) (test arsz=3667-4) 3+ NEGATIVE Urine Aqceimi3906-93-80 19:41:00* Test Item Value Reference Range Comments Urine Ketones (test shsm=57813-4) 1+ NEGATIVE Urine Fntkyjttizmy0722-38-89 19:41:00* Test Item Value Reference Range Comments Urine Urobilinogen (test qxtl=81510-3) 0.2 0.2-1 Urine Pwijiioyc3349-07-78 19:41:00* Test Item Value Reference Range Comments Urine Bilirubin (test ddmj=2280-1) NEGATIVE NEGATIVE Urine Xbxsn0212-00-33 19:41:00* Test Item Value Reference Range Comments Urine Blood (test wblq=17225-0) NEGATIVE NEGATIVE B-Type Natriuretic Eexvgzp2333-26-83 19:09:00* Test Item Value Reference Range Comments B-Type Natriuretic Peptide (test ejff=14756-0) 67.1 0-100 Total Duttwtklq6825-47-82 18:54:00* Test Item Value Reference Range Comments Total Bilirubin (test bcvg=4163-6) 0.6 0.2-1.2 Aspartate Amino Transf (AST/SGOT)2018-11-12 18:54:00* Test Item Value Reference Range Comments Aspartate Amino Transf (AST/SGOT) (test code=Aspartate Amino Transf (AST/SGOT)) 31 5-34 Alanine Aminotransferase (ALT/SGPT)2018-11-12 18:54:00* Test Item Value Reference Range Comments Alanine Aminotransferase (ALT/SGPT) (test gokv=4624-1) 33 0-55 Total Syrbakh7883-49-93 18:54:00* Test Item Value Reference Range Comments Total Protein (test bvci=8680-2) 6.2 6.5-8.1 Tbrzsrr2425-92-57 18:54:00* Test Item Value Reference Range Comments Albumin (test oelf=3010-5) 3.9 3.5-5.0 Oyuahncs2538-39-24 18:54:00* Test Item Value Reference Range Comments Globulin (test qkhf=60581-8) 2.3 2.3-3.5 Albumin/Globulin Ywtmd4753-71-36 18:54:00* Test Item Value Reference Range Comments Albumin/Globulin Ratio (test hpzc=3112-3) 1.7 0.8-2.0 Alkaline Sflkyhswizs9129-59-46 18:54:00* Test Item Value Reference Range Comments Alkaline Phosphatase (test zadl=4916-1) 52 40-150 Prothrombin Xxxr3542-23-50 18:48:00* Test Item Value Reference Range Comments Prothrombin Time (test phgh=6312-8) 13.0 11.9-14.5 Prothromb Time International Lhccf1030-71-15 18:48:00* Test Item Value Reference Range Comments Prothromb Time International Ratio (test onvj=1884-0) 0.90 Oral Anticoagulant Therapy INR Values:1. Low Intensity Therapy 1.5 - 2.02 . Moderate Intensity Therapy 2.0 - 3.03. High Intensity Therapy(1) 2.5 - 3. 54. High Intensity Therapy(2) 3.0 - 4.05. Panic Value INR > 5.0 Activated Partial Thromboplast Ybid7081-19-71 18:48:00* Test Item Value Reference Range Comments Activated Partial Thromboplast Time (test jwlr=59458-8) 25.3 23.8-35.5 CHEST SINGLE (PORTABLE)2018-11-12 18:46:00 [facility] [address] [place] [address] Patient Name: NEYDA FERGUSON MR #: [id number] : 1955 Age/Sex: 63/M Req #: [id number] Adm Physician: Ordered by: CHANTEL WEI MD Report #: [id number] Location: ER Room/Bed: Procedure: [id number] DX/CH EST SINGLE (PORTABLE) Exam Date: 11/12/18 Exam Time: 183 REPORT STATUS: Signed EXAM: XR CHEST 1 VIEW DATE: 11/12/2018 6:30 PM INDICATION: Pain COMPAR CAROLIN: None FINDINGS: Lines and Tubes: Left chest wall pacemaker. Heart and Mediastinum: No acute cardiomediastinal findings. Lungs and Pleur a: No significant pleural effusion, pneumothorax, or focal consolidation. Bones and Soft Tissues: No acute findings. IMPRESSION: 1. No acute car diopulmonary findings. Signed by: Dr. Valeriy Wray MD on 11/12/2018 6:46 PM Dictated By: VALERIY WRAY MD 45 Transcribed By: REBA on 11/12/181845 COPY TO: CHANTEL RUBY MD
[2020-01-24 08:50] VITALS: BP 159/94
--- NOTE | 2020-01-24 09:53 | Operative Report ---
DATE OF PROCEDURE: 01/24/2020 SURGEON: Gray Miranda MD PREOPERATIVE DIAGNOSIS: Bladder tumor. POSTOPERATIVE DIAGNOSIS: Bladder tumor. OPERATION PERFORMED: Cystoscopy, retrograde pyelograms, and transurethral resection of bladder tumor. ANESTHESIOLOGIST: Staff. ANESTHESIA: General. FINDINGS: The patient has a normal circumcised penis, has a nodule on the prostate left side at the apex. This will be followed with a PSA. Tumor was located in the posterior wall of the bladder towards the right side. Ureteral orifices were normal. The bladder was trabeculated grade 2. There were small cellules and saccules. Retrograde pyelogram was done. No filling defects were identified. PROCEDURE IN DETAIL: With the patient under satisfactory general anesthesia, the patient was placed in the supine position on the operating table. Legs were placed on stirrups. Genitalia was prepped with pHisoHex solution and draped in the usual manner. A time-out was obtained. All agreed with the procedure as planned. Firstly, the cystoscope was placed into the bladder. I used the 30 and 70-degree angle lens to inspect the entire bladder, tumor was identified. There were 3 adjacent small tumors to the main one. Trigone was normal. Using a #8 cone-tip ureteral catheter, contrast media was injected retrograde up to both kidneys and no filling defects were identified. Once that was done, the instruments were removed and replaced with the continuous-flow resectoscope, using saline bipolar energy. I used the loop and the button electrode. Firstly, was to do a resection of the tumor, which I did and the surrounding smaller tumors. These were elicited out of the bladder. Once that was done, then the base of the tumor was cut as well and sent in separately. I made sure that I saw continuous fibers of muscle and that the cut was through the lamina propria. At that point, I replaced the loop with the button electrode and fulguration of the base of the tumor to control hemostasis was done. Also, the surrounding area of the tumor was fulgurated with the button electrode. At that point, instruments were removed. A 20-Maori 5 mL balloon catheter was passed per urethra into the bladder. Irrigation was done until the return was clear. There was no bleeding at the end of the case. The B and O suppository were placed in the rectum, and then the patient was taken to the recovery room in satisfactory condition. DISCHARGE INSTRUCTIONS: The patient was given a leg bag and an overnight bag. He was given tramadol for pain and Keflex to take as an antibiotic. He is to call my office if there is any problem. He is to come to my office within a week to remove the Smith catheter. I will communicate to them the pathology report once the report is known. He has a nodule on the prostate. I discussed that with his and I will be obtaining a PSA in a month, so that if any more suspicions of a prostatic nodule, then we will go ahead and do a biopsy when he comes back in 2-4 months for repeat cystoscopy and biopsies of the bladder. MD DEANNA Marcos/ROLO /[id number]
== END | disposition home or self-care (01) ==
LOC: OR 05:28
PROVIDERS: ATTEND Urology
DX: C67.4 Malignant neoplasm of posterior wall of bladder (principal); N32.89 Other specified disorders of bladder; N40.2 Nodular prostate without lower urinary tract symptoms; I12.9 Hypertensive chronic kidney disease with stage 1 through stage 4 chronic kidney disease, or unspecified chronic kidney disease; N18.9 Chronic kidney disease, unspecified; M19.90 Unspecified osteoarthritis, unspecified site; F17.210 Nicotine dependence, cigarettes, uncomplicated; Z01.810 Encounter for preprocedural cardiovascular examination; Z01.818 Encounter for other preprocedural examination; Z95.0 Presence of cardiac pacemaker
CPT/HCPCS: 36415; 52234; 71046; 74420; 80053; 85025; 87086; 88305; 93005; C1758; J0690; J2001; J2250; J2405; J2704; J3010; Q9967

== ENCOUNTER → 2020-05-08 | Day surgery (SDC) | payer OTHER ==
[2020-05-02 14:00] LABS: BASOPHILS # (AUTO) 0.1 (0.0-0.1); BASOPHILS % 0.7 % (0.0-1.0); EOSINOPHILS # (AUTO) 0.2 (0.0-0.4); EOSINOPHILS % 2.8 % (0.0-6.0); HEMATOCRIT 44.5 % (38.2-49.6); HEMOGLOBIN 14.3 g/dL (14.0-18.0); LYMPHOCYTES # (AUTO) 1.7 (1.0-3.2); LYMPHOCYTES % 23.8 % (18.0-39.1); MEAN CORPUSCULAR HEMOGLOBIN 30.1 pg (28-32); MEAN CORPUSCULAR HGB CONC 32.1 g/dL (31-35); MEAN CORPUSCULAR VOLUME 93.7 fL (81-99); MONOCYTES # (AUTO) 0.7 (0.2-0.8); MONOCYTES % 10.1 % (4.4-11.3); NEUTROPHILS # (AUTO) 4.5 (2.1-6.9); NEUTROPHILS % 62.2 % (38.7-80.0); PLATELET COUNT 236 x10e3/uL (140-360); RED BLOOD COUNT 4.75 x10e6/uL (4.3-5.7); RED CELL DISTRIBUTION WIDTH 13.6 % (11.7-14.4)
[2020-05-02 14:33] LABS: ALBUMIN/GLOBULIN RATIO 1.4 (0.8-2.0); ANION GAP 13.7 mmol/L (8-16); CALCIUM 9.3 mg/dL (8.4-10.2); CREATININE, SERUM 1.35 mg/dL (0.72-1.25); POTASSIUM 3.7 mmol/L (3.5-5.1)
[~2020-05-08] MED LIST changes: +ACETAMINOPHEN325 M1 PO; +DEXAMETHASONE SOD PHOS INJ 4 MG/ML VIAL ONE; -EPHEDRINE SULFATE INJ 50 MG/ML VIAL ONE; +LIDOCAINE JELLY 2% 10ML URO-JET ONE; -MIDAZOLAM HCL 2 MG/2 ML VIAL ONE; +ROCURONIUM BROMIDE 10 MG/ML 5ML VIAL IV ONE
--- NOTE | 2020-05-08 11:00 | Diagnostic Imaging Report ---
OR Fluoroscopy: IMPRESSION: Fluoroscopy service provided in the OR. Interpretation not requested. Signed by: Dimitris Oquendo MD on 05/08/2020 10:57 AM
[2020-05-08 11:35] VITALS: BP 114/73
--- NOTE | 2020-05-08 13:19 | Operative Report ---
DATE OF PROCEDURE: 05/08/2020 SURGEON: Gray Miranda MD PREOPERATIVE DIAGNOSIS: Bladder cancer. POSTOPERATIVE DIAGNOSIS: Bladder cancer in remission. OPERATIONS PERFORMED: Cystoscopy, retrograde pyelogram, multiple bladder biopsies, and fulguration. ANESTHESIA: General. 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 The patient had been doing well. He is 4 months post op. He had been brought in for multiple bladder biopsies and fulguration as followup. PROCEDURE IN DETAIL: With the patient under satisfactory general anesthesia, he was placed in the supine position on the operating table. Legs were placed on stirrups. Genitalia was then prepped with pHisoHex solution and draped in the usual manner. A #22-[place] cystourethroscope was passed per urethra into the bladder and the bladder was inspected with a 12 and 70-degree angle lens. At this point, #8 cone-tip ureteral catheter was introduced and retrograde pyelograms were obtained by injecting contrast media up to both kidneys, approximately 10 mL of contrast media was injected on the right and the left side. At this point, the cup biopsy was used to obtain biopsies from the trigone, posterior wall, dome, anterior wall, right and left side of the bladder. Separately, the area of the tumor was also biopsied and sending separately. At this point, the Bugbee electrode was used to electro-fulgurate the base of the biopsies. Once that was done, instruments were removed after the bladder was empty, and about 10 mL of viscous Xylocaine per urethra into the bladder. At this point, the patient tolerated the procedure well, went to recovery room in satisfactory condition. DISCHARGE INSTRUCTIONS: He was given Keflex and tramadol. He is to continue all his other medications. Ambulation okay. He is to see me in the office next week to check the urine. He was given Keflex antibiotic and tramadol for pain. After that we will see him at 4 months interval to check on his bladder with a cystoscopy and do cytologies as well. The retrograde pyelograms were be interpreted by the radiologist, but there were grossly normal without any obstruction or filling defects. Gray Miranda MD RRG/MODL /[id number] cc: Ortega Schaefer MD
== END | disposition home or self-care (01) ==
LOC: OR 07:56
PROVIDERS: ATTEND Urology
DX: C67.8 Malignant neoplasm of overlapping sites of bladder (principal); N32.89 Other specified disorders of bladder; J44.9 Chronic obstructive pulmonary disease, unspecified; I48.91 Unspecified atrial fibrillation; I10 Essential (primary) hypertension; M19.90 Unspecified osteoarthritis, unspecified site; Z01.810 Encounter for preprocedural cardiovascular examination; Z01.812 Encounter for preprocedural laboratory examination; Z11.59 Encounter for screening for other viral diseases; Z95.0 Presence of cardiac pacemaker
CPT/HCPCS: 36415; 52005; 52214; 74420; 80053; 85025; 87086; 88305; 93005; C1758; J0690; J1100; J2001; J2405; J2704; J3010; Q9967; U0002

== ENCOUNTER → 2021-06-19 | Day surgery (SDC) | payer OTHER, MEDICARE ==
[2021-06-17 15:33] LABS: BASOPHILS # (AUTO) 0.1 (0.0-0.1); BASOPHILS % 1.4 % (0.0-1.0); EOSINOPHILS # (AUTO) 0.3 (0.0-0.4); EOSINOPHILS % 4.6 % (0.0-6.0); HEMATOCRIT 44.4 % (38.2-49.6); HEMOGLOBIN 14.6 g/dL (14.0-18.0); LYMPHOCYTES # (AUTO) 1.7 (1.0-3.2); LYMPHOCYTES % 25.8 % (18.0-39.1); MEAN CORPUSCULAR HGB CONC 32.9 g/dL (31-35); MEAN CORPUSCULAR VOLUME 97.4 fL (81-99); MONOCYTES % 15.2 % (4.4-11.3); NEUTROPHILS # (AUTO) 3.5 (2.1-6.9); NEUTROPHILS % 52.7 % (38.7-80.0); PLATELET COUNT 206 x10e3/uL (140-360); RED BLOOD COUNT 4.56 x10e6/uL (4.3-5.7); RED CELL DISTRIBUTION WIDTH 12.3 % (11.7-14.4)
[~2021-06-19] MED LIST changes: +ARAVA20 MG PO; -B&O 60MG R/S 60 MG SUPP PR ONE; -CEFAZOLIN SOD 1 GM/NS 50ML 100 ML IV ONE; +CIALIS5 MG PO; +CYMBALTA30 MG PO; -DEXAMETHASONE SOD PHOS INJ 4 MG/ML VIAL ONE; -FENTANYL CITRATE/PF 100MCG/2 ML INJ ONE; +GLUCAGON FOR INJ 1 MG VIAL ONE; +HYOSCYAMINE SULFATE 0.5 MG/ML INJ ONE; -IOPAMIDOL 300MG/ML 50ML INFUS..BTL IV ONE; -LIDOCAINE JELLY 2% 10ML URO-JET ONE; -ONDANSETRON HCL INJ 2MG/ML 2ML 2 MG/ML VIAL ONE; -ROCURONIUM BROMIDE 10 MG/ML 5ML VIAL IV ONE; -SEVOFLURANE INHAL SOLN 250 ML PEN BTL ONE; +VIT D2 PO; +XARELTO20 MG PO
[2021-06-19 11:53] VITALS: BP 130/91
== END | disposition home or self-care (01) ==
LOC: OR 08:11
PROVIDERS: ATTEND Internal Medicine Gastroenterology
DX: R19.5 Other fecal abnormalities (principal); D12.2 Benign neoplasm of ascending colon; D12.3 Benign neoplasm of transverse colon; D12.5 Benign neoplasm of sigmoid colon; K57.30 Diverticulosis of large intestine without perforation or abscess without bleeding; K64.8 Other hemorrhoids; I10 Essential (primary) hypertension; M06.9 Rheumatoid arthritis, unspecified; M10.9 Gout, unspecified; F32.9 Major depressive disorder, single episode, unspecified; Z01.810 Encounter for preprocedural cardiovascular examination; Z01.812 Encounter for preprocedural laboratory examination; Z20.822 Contact with and (suspected) exposure to COVID-19; Z79.02 Long term (current) use of antithrombotics/antiplatelets; Z68.28 Body mass index [BMI] 28.0-28.9, adult; Z95.0 Presence of cardiac pacemaker; Z85.51 Personal history of malignant neoplasm of bladder
CPT/HCPCS: 36415; 45380; 45385; 85025; 93005; J1610; J1980; J2001; J2704; U0002; 45378; 45384